=== PATIENT | male | born 1950 | race Caucasian/White ===

== ENCOUNTER 2020-12-12 14:26 | Emergency (ER) | payer OTHER ==
[~2020-12-12] VITALS: Ht 152.4 cm; Wt 95.3 kg
[2020-12-12] MEDS ORDERED: TRULICITY0.75 MG/0. SQ (14:45)
[2020-12-12] MEDS ORDERED: TIZANIDINE HCL2 M1 PO (14:45)
[2020-12-12] MEDS ORDERED: MELATONIN5 MG SUBLING (14:45)
[2020-12-12] MEDS ORDERED: CIPRODEX OTIC7.5 ML OTIC (15:04)
[2020-12-12 15:22] VITALS: BP 147/96
== END 2020-12-12 15:22 | disposition home or self-care (01) ==
LOC: M.ERS 14:26
DX: S00.411A Abrasion of right ear, initial encounter (principal); H60.91 Unspecified otitis externa, right ear; Z88.0 Allergy status to penicillin; X58.XXXA Exposure to other specified factors, initial encounter; Y93.89 Activity, other specified; Y92.89 Other specified places as the place of occurrence of the external cause; Y99.8 Other external cause status